=== PATIENT | female | born 1955 | race Two or more races ===

== ENCOUNTER 2022-01-10 11:27 | Emergency (ER) | payer OTHER ==
[~2022-01-10] VITALS: Ht 162.6 cm; Wt 70.3 kg
[2022-01-10] MEDS ORDERED: NALO4SPR BNOSTRILS (12:36)
[2022-01-10 13:13] VITALS: BP 136/88
== END 2022-01-10 13:13 | disposition home or self-care (01) ==
LOC: ER 11:32
DX: T40.2X1A Poisoning by other opioids, accidental (unintentional), initial encounter (principal); F19.229 Other psychoactive substance dependence with intoxication, unspecified; E11.9 Type 2 diabetes mellitus without complications; Z79.891 Long term (current) use of opiate analgesic; Z87.728 Personal history of other specified (corrected) congenital malformations of nervous system and sense organs; Y92.89 Other specified places as the place of occurrence of the external cause

== ENCOUNTER 2022-05-20 17:56 | Emergency (ER) | payer OTHER ==
[~2022-05-20] VITALS: Ht 157.5 cm; Wt 79.4 kg
[~2022-05-20 17:56] MED LIST: NALO4SPR BNOSTRILS
--- NOTE | 2022-05-20 18:00 | NUR ---
BIB[facility] 62 FRM HOME, OVERDOSE, DAUGHTER CALLED AND REPORTED "SMOKED FENTANYL", WAS UNRESPONSIVE, 4MG NASAL NARCAN AND 1MG NARCAN IV GIVEN FLOOR WORKER TRANSFER BAY. BS 137. TO ER BED 3, HOOKED TO CENTRAL STERILIZATION TECHNICIAN, SINUS RHYTHM NOTED. CHANGED TO HOSP GOWN, WARM BLANKET PROVIDED,. PATIENT AAO x2. BREATHING EVEN AND UNLABORED. PATIENT NOTED DROWSY. AWAITING MD VANCE
--- NOTE | 2022-05-20 18:31 | NUR ---
DENNY DEAN [phone] FOR RANGE CONSERVATIONIST ON DISCHARGE
[2022-05-20] MEDS ORDERED: NALO4SPR BNOSTRILS (19:37)
--- NOTE | 2022-05-20 19:56 | NUR ---
DAUGHTER WILL MOTION PICTURE PHOTOGRAPHER IN 20-30 MINS
--- NOTE | 2022-05-20 20:39 | NUR ---
Patient discharged to home in stable condition. Written and verbal after care instructions given. Patient verbalizes understanding of instruction.IV removed. Catheter intact and site benign. Pressure and 4x4 applied to site. No bleeding noted. Assisted via wheelchair and picked up by daughter Melanie.
[2022-05-20 20:40] VITALS: BP 130/80
--- NOTE | 2022-05-20 20:40 | NUR ---
Patient discharged to home in stable condition. Written and verbal after care instructions given. Patient verbalizes understanding of instruction.
== END 2022-05-20 20:41 | disposition home or self-care (01) ==
LOC: ER 18:02
DX: T40.411A Poisoning by fentanyl or fentanyl analogs, accidental (unintentional), initial encounter (principal); Y92.89 Other specified places as the place of occurrence of the external cause

== ENCOUNTER 2022-06-07 17:38 | Emergency (ER) | payer OTHER ==
[~2022-06-07] VITALS: Ht 162.6 cm; Wt 82.6 kg
--- NOTE | 2022-06-07 17:45 | NUR ---
PT MARINO FROM HOME, PER EMS REPORT, PT WAS FOUND BY DAUGHTER IN THE BATHROOM LETHARGIC AND WAS CONCERNED BECAUSE SHE HAS HX OF FENTANYL ABUSE/OVERDOSE. 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 PT STATES SHE DID SMOKE SOMETHING SHE THOUGHT WAS METH. PLACED ON MONITOR. STABLE VITALS. BG 158 CUSTOMER SERVICE OFFICER. AWAITING MD VANCE.
--- NOTE | 2022-06-07 19:25 | NUR ---
DENNY DEAN [phone]
[2022-06-07 21:00] VITALS: BP 128/67
--- NOTE | 2022-06-07 21:00 | NUR ---
Pt ambulatory with a steady gait. VSS. PT CALLED DTR FOR PROTOTYPE SEWER.
[2022-06-07] MEDS ORDERED: NALO4SPR BNOSTRILS (21:13)
--- NOTE | 2022-06-07 21:16 | NUR ---
Patient discharged to home in stable condition. Written and verbal after care instructions given. Patient verbalizes understanding of instruction.
== END 2022-06-07 21:30 | disposition home or self-care (01) ==
LOC: ER 17:40
DX: T40.411A Poisoning by fentanyl or fentanyl analogs, accidental (unintentional), initial encounter (principal); I10 Essential (primary) hypertension; E11.9 Type 2 diabetes mellitus without complications; Z79.899 Other long term (current) drug therapy; Y92.89 Other specified places as the place of occurrence of the external cause

== ENCOUNTER 2022-11-03 10:14 | Inpatient (IN) | payer MEDICARE, OTHER ==
[~2022-11-03] VITALS: Ht 162.6 cm; Wt 81.6 kg
[2022-11-03] MEDS ORDERED: KETOROLAC TROMETHAMINE INJ 60 MG/2 ML VIAL IM ONE ×2 (10:58→11:00)
--- NOTE | 2022-11-03 11:00 | NUR ---
Pt agitated/restless/moaning and groaning secondary to pain- Medicated as ordered
--- NOTE | 2022-11-03 12:00 | NUR ---
Able to be wheeled to BR- voided freely UA sent
[2022-11-03] MEDS ORDERED: ACETAMINOPHEN ES 500 MG TABLET PO ONE (13:00)
--- NOTE | 2022-11-03 13:00 | NUR ---
Updated by MD- Pt for admission. Awaiting Room assignment
[2022-11-03] MEDS ORDERED: ACETAMINOPHEN ES 500 MG TABLET ONE (13:03)
[2022-11-03] MEDS ORDERED: VANCOMYCIN 1 GM in IV D5W 250 ML IV ONE (14:00)
[2022-11-03] MEDS ORDERED: TRAMADOL HCL 50 MG TABLET PO ONE (14:00)
[2022-11-03] MEDS ORDERED: IV NS 0.9% 1,000 ML BAG IV ONE (14:00)
[2022-11-03] MEDS ORDERED: CEFEPIME 1 GM in IV D5W 50 ML IV ONE (14:00)
[2022-11-03] MEDS ORDERED: DICL75TA5 PO (14:19)
[2022-11-03] MEDS ORDERED: FENO200C PO (14:19)
[2022-11-03] MEDS ORDERED: LEVO100T9 PO (14:19)
[2022-11-03] MEDS ORDERED: GABA800T11 PO (14:19)
[2022-11-03] MEDS ORDERED: LORA-259 PO (14:19)
[2022-11-03] MEDS ORDERED: PROP10TA68 PO (14:19)
[2022-11-03 14:26] LABS: BASOPHILS % (AUTO) 0.2 % (0.0-2.0); EOSINOPHILS % (AUTO) 0.2 % (0.0-6.0); HEMATOCRIT 35 % (33-45); LYMPHOCYTES % (AUTO) 10.8 % (20.0-44.0); MEAN CORPUSCULAR HGB CONC 32 g/dl (31.0-36.0); MEAN CORPUSCULAR VOLUME 83 fL (82-100); MONOCYTES # (AUTO) 0.2 K/uL (0.1-1.30); NEUTROPHILS # (AUTO) 7.8 K/uL (1.8-8.9); NEUTROPHILS % (AUTO) 86.8 % (43.0-81.0); PLATELET COUNT (AUTO) 109 K/uL (150-450); RED BLOOD CELL COUNT(AUTO) 4.24 MIL/uL (4.0-5.2)
[2022-11-03] MEDS ORDERED: TRAMADOL HCL 50 MG TABLET ONE (14:35)
[2022-11-03 14:46] LABS: ALANINE AMINOTRANSFERASE 28 U/L (12-78); ALBUMIN 1.9 g/dL (3.4-5.0); ALKALINE PHOSPHATASE 198 U/L (46-116); ASPARTATE AMINOTRANSFERASE 38 U/L (15-37); BILIRUBIN,DIRECT 0.7 mg/dL (0.0-0.2); BILIRUBIN,TOTAL 1.2 mg/dL (0.2-1.0); CALCIUM, SERUM 8.6 mg/dL (8.5-10.1); CARBON DIOXIDE 27 mmol/L (21-32); CHLORIDE 99 mmol/L (98-107); CREATININE 1.2 mg/dL (0.6-1.3); GLUCOSE 316 mg/dL (74-106); POTASSIUM 3.6 mmol/L (3.5-5.1); SODIUM SERUM 134 mmol/L (136-145); TOTAL PROTEIN, SERUM 6.6 g/dL (6.4-8.2); UREA NITROGEN, BLOOD 27 mg/dL (7-18)
--- NOTE | 2022-11-03 14:53 | NUR ---
LACTIC ACID IS 2.9
--- NOTE | 2022-11-03 15:00 | NUR ---
Pt complaining of pain medicated as ordered
[2022-11-03] MEDS ORDERED: MAGNESIUM HYDROXIDE 30 ML UDC PO PRN (15:30)
[2022-11-03] MEDS ORDERED: MAG HYDROX/AL HYDROX/SIMETH 30 ML UDC PO PRN (15:30)
[2022-11-03] MEDS ORDERED: DEXTROSE 50%-WATER 50 ML DISP.SYRIN IV PRN (15:30)
[2022-11-03] MEDS ORDERED: Z GUARD REMEDY 4 OZ OINT TP PRN (15:30)
--- NOTE | 2022-11-03 15:30 | NUR ---
Sleeping soundly- NO obvious distress respirations even and unlabored O2 applied for comfort
[2022-11-03 15:37] LABS: BILIRUBIN,URINE 1+ (NEGATIVE); COLOR,URINE YELLOW (YELLOW); LEUKOCYTE ESTERASE ,URINE TRACE (NEGATIVE); NITRITE, URINE POSITIVE (NEGATIVE); PROTEIN,URINE 2+ mg/dl (NEGATIVE); UGLUCOSE 2+ mg/dL (NEGATIVE)
[2022-11-03] MEDS ORDERED: MORPHINE SULFATE INJ 2 MG/ML DISP.SYRIN IV ONE (16:30)
[2022-11-03] MEDS ORDERED: TEMAZEPAM 15 MG CAPSULE PO PRN (16:30)
[2022-11-03] MEDS ORDERED: ONDANSETRON HCL/PF 4 MG/2 ML VIAL ONE (16:57)
[2022-11-03] MEDS ORDERED: MORPHINE SULFATE INJ 4 MG/ML DISP.SYRIN ONE (16:57)
[2022-11-03] MEDS: ONDANSETRON HCL/PF 4 MG/2 ML VIAL IVP PRN ×2 (17:00→18:32)
[2022-11-03 17:03] LABS: BACTERIA,URINE 4+ /HPF (None Seen); RBC,URINE 81-100 /HPF (0-2); SQUAMOUS EPITHELIAL CELL,UR Few /HPF (None Seen)
[2022-11-03] MEDS: BLOOD SUGAR DIAGNOSTIC 1 EACH STRIP IN SCH ×2 (17:30→23:03)
[2022-11-03] MEDS ORDERED: PROPRANOLOL HCL 10 MG TABLET ONE (17:37)
[2022-11-03] MEDS: PROPRANOLOL HCL 10 MG TABLET PO SCH (17:43)
[2022-11-03] MEDS: DICLOFENAC SODIUM 25 MG TABLET.DR PO SCH (17:44)
[2022-11-03] MEDS ORDERED: INSULIN REGULAR, HUMAN 100 UNIT/ML 10 ML VIAL ONE (18:01)
[2022-11-03] MEDS: INSULIN REGULAR, HUMAN 100 UNIT/ML 3 ML VIAL SQ PRN ×2 (18:11→23:07)
--- NOTE | 2022-11-03 19:21 | NUR ---
lactic acid 2.9 md made aware
--- NOTE | 2022-11-03 20:25 | NUR ---
REPORT GIVEN TO MOOKIE Baird RN FOR CATY
--- NOTE | 2022-11-03 20:26 | NUR ---
PT TRANSFERRING TO 3W 316 VIA ACLS PROTOCOL. VSS. ALL BELONGINGS WITH PT.
[2022-11-03 20:40] VITALS: BP 125/75
--- NOTE | 2022-11-03 20:45 | NUR ---
MS RN ADMITTING NOTE ADDICTED THIS PATIENT FROM ER VIA GURNEY IN D/T OSTEOMYELITIS. PATIENT IS AWAKE, ALERT AND ORIENTED X 2-3. ON O2 INHALATION @ 2 LPM VIA NASAL CANNULA; TOLERATING WELL. BREATHING EVEN AND NONLABORED; AFEBRILE. NOT IN ANY FORM OF RESPIRATORY OR CARDIAC DISTRESS. COMPLAINED OF LOWER BACK PAIN. WITH IV ACCESS ON LEFT HAND 20G; PATENT, INTACT AND SALINE LOCKED. BODY ASSESSMENT DONE; SKIN IS INTACT. ORIENTED TO STAFF, ROOM AND UNIT. SAFETY MEASURES IMPLEMENTED: HEAD OF BED ELEVATED, CALL LIGHT AND TABLE WITHIN REACH, SIDE RAILS UP X 2, BED IN LOWEST LOCKED POSITION. WILL CONTINUE TO MONITOR.
[2022-11-03 21:00] VITALS: BP 125/75
[2022-11-03] MEDS: HYDROCODONE/APAP 5/325MG TABLET PO SCH (21:23)
--- NOTE | 2022-11-03 21:23 | NUR ---
RN NOTE PATIENT C/O LOWER BACK PAIN 8/10 PAIN SCALE. PRN NORCO 5/325 MG 1 TAB GIVEN PO ORDERED; TOLERATED WELL. WILL CONTINUE TO REASSESS AND MONITOR PATIENT.
[2022-11-03] MEDS: IV NS 0.9% 1,000 ML IV PRN (21:29)
[2022-11-03] MEDS: CEFEPIME 2 GM in IV D5W 100 ML IV SCH (22:13)
--- NOTE | 2022-11-03 23:07 | NUR ---
RN NOTE BLOOD SUGAR CHECKED - 167 MG/DL. 3 UNITS OF REGULAR INSULIN GIVEN SQ PER SLIDING SCALE ORDERED. WILL CONTINUE TO MONITOR
[2022-11-04] MEDS ORDERED: KETOROLAC TROMETHAMINE INJ 30 MG/ML VIAL IV PRN (01:00)
[2022-11-04] MEDS: HYDROCODONE/APAP 5/325MG TABLET PO SCH (01:34)
[2022-11-04] MEDS: VANCOMYCIN HCL 0.75 GM in IV D5W 250 ML IV SCH ×2 (04:14→15:49)
[2022-11-04] MEDS: BLOOD SUGAR DIAGNOSTIC 1 EACH STRIP IN SCH ×4 (06:11→22:10)
[2022-11-04] MEDS: INSULIN REGULAR, HUMAN 100 UNIT/ML 3 ML VIAL SQ PRN ×4 (06:12→22:15)
--- NOTE | 2022-11-04 06:12 | NUR ---
RN NOTE BLOOD SUGAR CHECKED - 104 MG/DL. NO INSULIN COVERAGE GIVEN PER SLIDING SCALE. MADE COMFORTABLE IN BED.
[2022-11-04 06:43] LABS: BASOPHILS % (AUTO) 0.2 % (0.0-2.0); EOSINOPHILS % (AUTO) 0.1 % (0.0-6.0); HEMATOCRIT 34 % (33-45); HEMOGLOBIN 10.7 g/dL (11.5-14.8); LYMPHOCYTES # (AUTO) 1.1 K/uL (0.8-4.8); LYMPHOCYTES % (AUTO) 4.5 % (20.0-44.0); MEAN CORPUSCULAR HGB CONC 32 g/dl (31.0-36.0); MEAN CORPUSCULAR VOLUME 83 fL (82-100); MONOCYTES # (AUTO) 1.3 K/uL (0.1-1.30); MONOCYTES % (AUTO) 5.7 % (2.0-12.0); NEUTROPHILS % (AUTO) 89.5 % (43.0-81.0); PLATELET COUNT (AUTO) 67 K/uL (150-450); RED BLOOD CELL COUNT(AUTO) 4.07 MIL/uL (4.0-5.2); WHITE BLOOD COUNT (AUTO) 23.5 K/uL (4.3-11.0)
--- NOTE | 2022-11-04 06:52 | NUR ---
RN NOTE RECEIVED CRITICAL LAB RESULT-PLATELET COUNT - 67. WILL ENDORSED TO INCOMING NURSE.
--- NOTE | 2022-11-04 06:56 | NUR ---
MS RN CLOSING NOTE PATIENT IN BED; AWAKE, A/O X 2-3. STILL ON O2 INHALATION @ 2 LPM VIA NASAL CANNULA; WELL TOLERATED. BREATHING EQUAL AND UNLABORED; AFEBRILE. IN NO ACUTE DISTRESS. WITH IV ACCESS ON LEFT HAND 20G; PATENT AND INTACT INFUSING WITH IVF NS 1L RUNNING @ 100 CC/HR; FLUSHES WELL. SAFETY MEASURES MAINTAINED: HEAD OF BED ELEVATED, CALL LIGHT AND TABLE WITHIN REACH, SIDE RAILS UP X 2, BED IN LOWEST LOCKED POSITION. ENDORSED TO MORNING SHIFT FOR CATY.
[2022-11-04 07:00] VITALS: BP 133/74
--- NOTE | 2022-11-04 07:00 | NUR ---
MS RN OPENING NOTE PATIENT LAYING IN BED, A/O X 3, ABLE TO MAKE NEEDS KNOWN, TOLERATING WELL ON 2 LPM O2 VIA NASAL CANNULA. NO PAIN OR DISCOMFORT AT THIS TIME. L HAND # 20 SL INTACT BUT WITH LEFT ARM EDEMA NOTED, IV FLUIDS HALTED. SAFETY MEASURES IN PLACE: BED IN LOWEST LOCKED POSITION, SIDE RAILS UP X 2, CALL LIGHT WITHIN REACH. WILL CONTINUE TO MONITOR.
--- NOTE | 2022-11-04 07:30 | NUR ---
MS ESCAMILLA NOTES PATIENT IV INFILTRATED AND PATIENT REFUSING IV START AT THIS TIME, AWARE Addendum: 11/04/22 at 1224 by MADI PASCUAL RN PATIENT STILL REFUSING IV START WELL ANY IV OR PO MEDICATIONS, RISKS OF REFUSING MEDICATIONS EXPLAINED X 3, PATIENT STILL REFUSED IV START AND MEDICATIONS. PATIENT STATED HER DAUGHTER IS EN ROUTE TO HOSPITAL TO BRING HER HOME AGAINST MEDICAL ADVICE.
[2022-11-04 07:31] LABS: CALCIUM, SERUM 8.8 mg/dL (8.5-10.1); CREATININE 0.9 mg/dL (0.6-1.3); MAGNESIUM 1.7 mg/dL (1.8-2.4); PHOSPHORUS 2.7 mg/dL (2.5-4.9); POTASSIUM 3.4 mmol/L (3.5-5.1)
[2022-11-04] MEDS ORDERED: POTASSIUM CHLORIDE 20 MEQ TAB.PRT.SR PO ONE ×2 (08:00→10:00)
[2022-11-04] MEDS ORDERED: Magnesium 1GM/D5W 100ML PREMIX PIGGYBACK IV ONE (08:00)
[2022-11-04] MEDS: FENOFIBRATE NANOCRYS (145 MG) 145 MG TABLET PO SCH (08:30)
[2022-11-04] MEDS: LEVOTHYROXINE SODIUM 100 MCG TABLET PO SCH (08:31)
[2022-11-04] MEDS: GABAPENTIN 400 MG CAPSULE PO SCH (08:31)
[2022-11-04] MEDS: PROPRANOLOL HCL 10 MG TABLET PO SCH ×2 (08:31→16:56)
[2022-11-04] MEDS: CEFEPIME 2 GM in IV D5W 100 ML IV SCH ×2 (10:00→21:27)
[2022-11-04] MEDS: Magnesium 1GM/D5W 100ML PREMIX 100 ML IV SCH ×2 (11:00→12:00)
[2022-11-04] MEDS: DICLOFENAC SODIUM 25 MG TABLET.DR PO SCH ×2 (11:15→16:55)
[2022-11-04] MEDS ORDERED: FENTANYL PF 250MCG/5ML AMPUL IV PRN (12:00)
[2022-11-04] MEDS ORDERED: NALOXONE PREFILLED SYRINGE 2 MG/2 ML SYRINGE IV PRN (12:00)
[2022-11-04] MEDS ORDERED: MIDAZOLAM HCL 2 MG/2ML VIAL IV PRN (12:00)
[2022-11-04] MEDS ORDERED: FLUMAZENIL 0.5 MG VIAL IV PRN (12:00)
--- NOTE | 2022-11-04 12:55 | NUR ---
MS RN NOTES PATIENT TRANSPORTED OFF OF FLOOR FOR PROCEDURE. CONSENT FORMS SIGNED.
--- NOTE | 2022-11-04 13:37 | NUR ---
pt unable to hold still, Radiologist will to to ordering Md regarding possible anesthesia consult.
[2022-11-04 16:00] VITALS: BP 127/64
--- NOTE | 2022-11-04 16:23 | NUR ---
MS ESCAMILLA NOTES PATIENT SIGNED CONSENT FOR PICC LINE INSERTION. PERIPHERAL IV LINE REMOVED DUE TO INFILTRATION, PATIENT REFUSING PERIPHERAL IV START. NO IV ACCESS AT THIS TIME. AWARE. Addendum: 11/04/22 at 1624 by MADI PASCUAL RN NURSING GLAZE WIPER AND CHARGE NURSE MADE AWARE OF REQUEST FOR PICC LINE INSERTION
--- NOTE | 2022-11-04 17:00 | NUR ---
MS RN NOTE PATIENT REFUSED ABSCESS DRAINAGE PROCEDURE TODAY. AWARE.
[2022-11-04] MEDS ORDERED: Magnesium 1GM/D5W 100ML PREMIX 100 ML IV SCH (19:00)
--- NOTE | 2022-11-04 19:00 | NUR ---
MS RN CLOSING NOTE PATIENT LAYING IN BED, A/O X 3, ABLE TO MAKE NEEDS KNOWN, TOLERATING WELL ON ROOM AIR WITH NO S/S RESPIRATORY DISTRESS. NO COMPLAINTS OF PAIN OR DISCOMFORT AT THIS TIME. R AC PICC LINE IN PLACE WITH IV NS INFUSING @ 100 ML/HR. SAFETY MEASURES IN PLACE: BED IN LOWEST LOCKED POSITION, SIDE RAILS UP X 2, CALL LIGHT WITHIN REACH. ALL NEEDS MET. WILL ENDORSE TO BANQUET COOK FOR CATY.
[2022-11-04 19:29] LABS: BAND % (MANUAL) 16 % (0.0-5.0); EOSINOPHILS % (MANUAL) 1 % (0-4); LYMPHOCYTES % (MANUAL) 3 % (16-48); MONOCYTES % (MANUAL) 4 % (0-11.0); NEUTROPHILS % (MANUAL) 76 (42-76)
[2022-11-04] MEDS ORDERED: LORAZEPAM ORAL SOLN 2 MG/ML ORAL.CONC PO PRN (19:30)
--- NOTE | 2022-11-04 19:30 | NUR ---
MS RN OPENING NOTE RECEIVED PATIENT IN BED; AWAKE, ALERT AND ORIENTED X 3. ON O2 INHALATION @ 2 LPM VIA NASAL CANNULA; TOLERATING WELL. BREATHING EVEN AND NONLABORED; AFEBRILE. NOT IN ANY FORM OR RESPIRATORY OR CARDIAC DISTRESS NOTED. WITH PICC LINE ON RIGHT UPPER ARM 18G; PATENT AND INTACT INFUSING WITH IVF NS 1L RUNNING @ 100 CC/HR; FLUSHES WELL. ABLE TO MAKE NEEDS KNOWN. SAFETY MEASURES IMPLEMENTED: HEAD OF BED ELEVATED, CALL LIGHT AND TABLE WITHIN REACH, SIDE RAILS UP X 2, BED IN LOWEST LOCKED POSITION. WILL CONTINUE TO MONITOR.
[2022-11-04 20:00] VITALS: BP 110/54
[2022-11-05] MEDS ORDERED: Magnesium 1GM/D5W 100ML PREMIX 100 ML IV SCH
[2022-11-05] MEDS: VANCOMYCIN 1.25 GM in IV D5W 250 ML IV SCH (03:56)
[2022-11-05] MEDS: BLOOD SUGAR DIAGNOSTIC 1 EACH STRIP IN SCH ×4 (05:52→21:39)
[2022-11-05] MEDS: INSULIN REGULAR, HUMAN 100 UNIT/ML 3 ML VIAL SQ PRN ×4 (06:04→21:43)
[2022-11-05] MEDS: HYDROCODONE/APAP 5/325MG TABLET PO SCH ×3 (06:38→21:56)
--- NOTE | 2022-11-05 06:40 | NUR ---
MS RN CLOSING NOTE PATIENT IN BED; AWAKE, A/O X 3. STILL ON O2 INHALATION @ 2 LPM VIA NASAL CANNULA; WELL TOLERATED. BREATHING EQUAL AND UNLABORED; AFEBRILE. IN NO ACUTE DISTRESS NOTED. WITH PICC LINE ON RIGHT UPPER ARM 18G; PATENT AND INTACT INFUSING WITH IVF NS 1L RUNNING @ 100 CC/HR; FLUSHING WELL. SAFETY MEASURES MAINTAINED: HEAD OF BED ELEVATED, CALL LIGHT AND TABLE WITHIN REACH, SIDE RAILS UP X 2, BED IN LOWEST LOCKED POSITION. ENDORSED TO MORNING SHIFT FOR CATY.
--- NOTE | 2022-11-05 07:00 | NUR ---
MS RN OPENING NOTE PATIENT LAYING IN BED, A/O X 3, ABLE TO MAKE NEEDS KNOWN, TOLERATING WELL ON 2 LPM O2 VIA CANNULA WITH ON PAIN OR DISCOMFORT AT THIS TIME. ALETHA PICC LINE CLEAN, INTACT, AND INFUSING NS @ 100 ML/HR. SAFETY MEASURES IN PLACE: BED IN LOWEST LOCKED POSITION, SIDE RAILS UP X 2, CALL LIGHT WITHIN REACH. WILL CONTINUE TO MONITOR.
[2022-11-05] MEDS: LEVOTHYROXINE SODIUM 100 MCG TABLET PO SCH (08:38)
[2022-11-05] MEDS: GABAPENTIN 400 MG CAPSULE PO SCH (08:38)
[2022-11-05] MEDS: PROPRANOLOL HCL 10 MG TABLET PO SCH ×2 (08:38→16:55)
[2022-11-05] MEDS: DICLOFENAC SODIUM 25 MG TABLET.DR PO SCH ×2 (08:39→16:55)
[2022-11-05] MEDS: FENOFIBRATE NANOCRYS (145 MG) 145 MG TABLET PO SCH (08:39)
[2022-11-05 08:44] LABS: BASOPHILS % (AUTO) 0.2 % (0.0-2.0); EOSINOPHILS % (AUTO) 0.5 % (0.0-6.0); HEMATOCRIT 31 % (33-45); HEMOGLOBIN 9.9 g/dL (11.5-14.8); LYMPHOCYTES % (AUTO) 11.8 % (20.0-44.0); MEAN CORPUSCULAR HGB CONC 32 g/dl (31.0-36.0); MEAN CORPUSCULAR VOLUME 82 fL (82-100); MONOCYTES # (AUTO) 0.9 K/uL (0.1-1.30); MONOCYTES % (AUTO) 5.5 % (2.0-12.0); NEUTROPHILS # (AUTO) 13.9 K/uL (1.8-8.9); PLATELET COUNT (AUTO) 90 K/uL (150-450); RED BLOOD CELL COUNT(AUTO) 3.79 MIL/uL (4.0-5.2); WHITE BLOOD COUNT (AUTO) 16.9 K/uL (4.3-11.0)
[2022-11-05] MEDS: CEFEPIME 2 GM in IV D5W 100 ML IV SCH ×2 (09:07→21:07)
[2022-11-05 09:39] LABS: CALCIUM, SERUM 7.9 mg/dL (8.5-10.1); CREATININE 0.9 mg/dL (0.6-1.3); MAGNESIUM 2.1 mg/dL (1.8-2.4); POTASSIUM 4.2 mmol/L (3.5-5.1)
[2022-11-05] MEDS: ACETAMINOPHEN 325 MG TABLET PO PRN (14:32)
[2022-11-05 18:09] LABS: BAND % (MANUAL) 7 % (0.0-5.0); LYMPHOCYTES % (MANUAL) 10 % (16-48); MONOCYTES % (MANUAL) 6 % (0-11.0); NEUTROPHILS % (MANUAL) 77 (42-76)
--- NOTE | 2022-11-05 18:16 | NUR ---
MS RN CLOSING NOTE PATIENT LAYING IN BED, A/O X 3, ABLE TO MAKE NEEDS KNOWN, TOLERATING WELL ON 2 LPM O2 VIA CANNULA WITH ON PAIN OR DISCOMFORT AT THIS TIME. ALETHA PICC LINE CLEAN, INTACT, AND INFUSING NS @ 100 ML/HR. SAFETY MEASURES IN PLACE: BED IN LOWEST LOCKED POSITION, SIDE RAILS UP X 2, CALL LIGHT WITHIN REACH. ALL NEEDS MET. WILL ENDORSE TO MERCHANDISER FOR CATY.
--- NOTE | 2022-11-05 19:05 | NUR ---
MS RN OPENING NOTE PATIENT IS SITTING IN BED, A/O X 3. SHE IS ON 2 LPM OXYGEN VIA NC, TOLERATED WELL. NO S/S OF SOB OR DISTRESS. IV ACCESS IS AT HER RIGHT UA, PICC, #18G, RUNNING NS @100 ML/HR. IV SITE IS PATENT AND INTACT. PATIENT DENIES OF HAVING PAIN. SAFETY MEASURES IN PLACE: BED IN LOWEST AND LOCKED POSITION; SIDE RAILS UP X 2; CALL LIGHT AND TABLE ARE WITHIN REACH. WILL CONTINUE TO MONITOR THE PATIENT AND PROVIDE THE CARE PATIENT NEEDS. .
[2022-11-05 20:00] VITALS: BP 116/66
[2022-11-06] MEDS: HYDROMORPHONE 1 MG/1 ML DISP.SYRIN IV PRN ×2 (01:44→08:21)
--- NOTE | 2022-11-06 01:45 | NUR ---
MS RN NOTE PRN MEDICATION DILAUDID WAS GIVEN FOR PATIENT'S 10/10 PAIN ON HER BACK PER MD ORDER.
[2022-11-06] MEDS: LORAZEPAM INJ 2 MG/ML VIAL IV PRN ×2 (04:11→21:01)
[2022-11-06] MEDS: VANCOMYCIN 1.25 GM in IV D5W 250 ML IV SCH (04:12)
--- NOTE | 2022-11-06 04:15 | NUR ---
MS RN NOTE PATIENT REQUESTED ATIVAN FOR HER ANXIETY. PRN MEDICATION ATIVAN GIVEN PER MD ORDER.
[2022-11-06] MEDS: IV NS 0.9% 1,000 ML IV PRN (05:11)
[2022-11-06 05:54] LABS: CALCIUM, SERUM 7.7 mg/dL (8.5-10.1); CREATININE 0.8 mg/dL (0.6-1.3); POTASSIUM 3.6 mmol/L (3.5-5.1)
[2022-11-06 06:04] LABS: BASOPHILS % (AUTO) 0.3 % (0.0-2.0); EOSINOPHILS % (AUTO) 0.7 % (0.0-6.0); HEMATOCRIT 36 % (33-45); HEMOGLOBIN 11.3 g/dL (11.5-14.8); LYMPHOCYTES # (AUTO) 2.1 K/uL (0.8-4.8); LYMPHOCYTES % (AUTO) 12.8 % (20.0-44.0); MEAN CORPUSCULAR HGB CONC 31 g/dl (31.0-36.0); MEAN CORPUSCULAR VOLUME 84 fL (82-100); MONOCYTES % (AUTO) 6.1 % (2.0-12.0); NEUTROPHILS # (AUTO) 13.2 K/uL (1.8-8.9); NEUTROPHILS % (AUTO) 80.1 % (43.0-81.0); PLATELET COUNT (AUTO) 121 K/uL (150-450); RED BLOOD CELL COUNT(AUTO) 4.33 MIL/uL (4.0-5.2); WHITE BLOOD COUNT (AUTO) 16.5 K/uL (4.3-11.0)
[2022-11-06] MEDS: INSULIN REGULAR, HUMAN 100 UNIT/ML 3 ML VIAL SQ PRN ×4 (06:44→22:07)
--- NOTE | 2022-11-06 06:57 | NUR ---
MS RN CLOSING NOTE PATIENT IS SITTING IN BED, A/O X 3. SHE IS ON 2 LPM OXYGEN VIA NC, TOLERATED WELL. NO S/S OF SOB OR DISTRESS. IV ACCESS IS AT HER RIGHT UA, PICC, #18G, RUNNING NS @100 ML/HR. IV SITE IS PATENT AND INTACT. THROUGH THE SHIFT, PATIENT'S NEEDS HAVE BEEN MET. SAFETY MEASURES IN PLACE: BED IN LOWEST AND LOCKED POSITION; SIDE RAILS UP X 2; CALL LIGHT AND TABLE ARE WITHIN REACH. WILL ENDORSE NEXT SHIFT NURSE FOR CONTINUING PATIENT CARE.
[2022-11-06] MEDS: BLOOD SUGAR DIAGNOSTIC 1 EACH STRIP IN SCH ×4 (07:12→22:03)
--- NOTE | 2022-11-06 07:30 | NUR ---
RN MS NOTES PT IN BED, AWAKE, ALERT AND ORIENTED, WITH COMPLAINT OF LOWER BACK PAIN, NOT IN DISTRESS, PICC LINE AT RIGHT UPPER ARM INTACT AND PATENT, IV FLUIDS INFUSING WELL, ASSISTED TO BEDSIDE COMMODE, ASSISTED WITH BREAKFAST, NEEDS ATTENDED.
[2022-11-06] MEDS: FENOFIBRATE NANOCRYS (145 MG) 145 MG TABLET PO SCH (08:20)
[2022-11-06] MEDS: PROPRANOLOL HCL 10 MG TABLET PO SCH ×2 (08:20→17:35)
[2022-11-06] MEDS: GABAPENTIN 400 MG CAPSULE PO SCH (08:20)
[2022-11-06] MEDS: LEVOTHYROXINE SODIUM 100 MCG TABLET PO SCH (08:20)
[2022-11-06] MEDS: DICLOFENAC SODIUM 25 MG TABLET.DR PO SCH ×2 (08:22→17:35)
[2022-11-06 08:23] VITALS: BP 141/63
[2022-11-06] MEDS: CEFEPIME 2 GM in IV D5W 100 ML IV SCH (09:56)
--- NOTE | 2022-11-06 11:45 | NUR ---
RN MS NOTES PT IN BED, AWAKE, ALERT AND ORIENTED, NO COMPLAINT AT THIS TIME, BLOOD SUGAR CHECKED, INSULIN GIVEN PER SLIDING SCALE ORDERED, ASSISTED TO BEDSIDE COMMODE NEEDED, NEEDS ATTENDED.
[2022-11-06 15:35] VITALS: BP 140/91
--- NOTE | 2022-11-06 15:35 | NUR ---
DEPUTY FELONY CLERK NOTES CALLED TO PT'S ROOMBY 2 STAFF, NOTED PT HAD AN EPISODE OF UNRESPONSIVENESS, TRIES TO OPEN EYES, DROWSY, FOUND A GREEN VAPE CARTRIDGE AT THE BED, KEPT AT PT'S CHART, EX- AT BEDISDE, VITAL SIGNS WNL, O2 SAT DROPPED TO HIGH 80'S BUT WENT UP TO 98% AFTER O2 ADMINISTRATION, RAPID RESPONSE CALLED, PT ABLE TO SPEAK NOW, SAYS HER NAME, STILL A BIT SLEEPY, EASILY AROUSABLE, DR. OGLESBY INFORMED, ORDERED STAT CT HEAD AND URINE DRUG SCREEN, RAPID RESPONSE CANCELLED PT IS AWAKE NOW, WILL CONTINUE TO MONITOR.
[2022-11-06 16:26] VITALS: BP 109/64
--- NOTE | 2022-11-06 16:43 | NUR ---
DOORKEEPER NOTES PT FULLY AWAKE NOW, STATES THAT SHE DID NOT TAKE ANY MEDICATION, ON SINUS RHYTHM ON THE MONITOR, HR ON THE 90'S, ASSISTED TO BEDSIDE COMMODE, NO CHANGE IN LEVEL OF CONSCIOUSNESS, WILL CONTINUE TO MONITOR.
[2022-11-06 17:35] VITALS: BP 143/71
--- NOTE | 2022-11-06 18:36 | NUR ---
MANAGER MEDIA RELATIONS NOTES PT IN BED, AWAKE, ALERT AND ORIENTED, WATCHING TV, NO COMPLAINT OF PAIN OR ANY DISCOMFORT AT THIS TIME, NO CHANGE IN LOC, RESPIRATIONS NORMAL, ON O2 AT 2LPM VIA N/C, NO SOB, IV FLUIDS INFUSING WELL, ALL NEEDS ATTENDED.
[2022-11-06] MEDS: MEROPENEM 1 G in IV NS 0.9% 100 ML IV SCH (18:53)
--- NOTE | 2022-11-06 19:05 | NUR ---
MS RN OPENING NOTE PATIENT IS SITTING IN BED EATING HER SNACKS. A/O X 3. SHE IS ON 2 LPM OXYGEN VIA NC, TOLERATED WELL. NO S/S OF SOB OR DISTRESS. IV ACCESS IS AT HER RIGHT UA, PICC, #18G, RUNNING NS @100 ML/HR. IV SITE IS PATENT AND INTACT. PATIENT DENIES OF HAVING PAIN AT THIS MOMENT. SAFETY MEASURES ARE IN PLACE: BED IN LOWEST AND LOCKED POSITION; SIDE RAILS UP X 2; CALL LIGHT AND TABLE ARE WITHIN REACH. WILL CONTINUE MONITORING THE PATIENT AND PROVIDE THE CARE PATIENT NEEDS. Addendum: 11/06/22 at 2037 by BALAJI FONSECA RN MEMBER OF THE LEGISLATIVE COUNCIL NOTE PATIENT IS ON EXTERNAL CONTROL OPERATOR FLOW COAT. ON THE TELE MONITOR, PATIENT IS SR with hr at 80s.
[2022-11-06 20:00] VITALS: BP 124/70
--- NOTE | 2022-11-06 21:05 | NUR ---
CARBON BRUSHER ASSEMBLER NOTE PATIENT STATED THAT SHE NEEDED ATIVAN FOR HER ANXIETY. PRN MEDICATION ATIVAN GIVEN VIA IV PER MD ORDER.
[2022-11-07] VITALS: BP 143/76
[2022-11-07] MEDS: HYDROMORPHONE 1 MG/1 ML DISP.SYRIN IV PRN ×2 (01:52→20:39)
[2022-11-07] MEDS: ONDANSETRON HCL/PF 4 MG/2 ML VIAL IVP PRN ×2 (02:03→20:50)
[2022-11-07] MEDS: VANCOMYCIN 1.25 GM in IV D5W 250 ML IV SCH (03:47)
[2022-11-07] MEDS: IV NS 0.9% 1,000 ML IV PRN ×2 (03:58→18:30)
[2022-11-07 04:00] VITALS: BP 133/79
[2022-11-07] MEDS: HYDROCODONE/APAP 5/325MG TABLET PO SCH (05:09)
[2022-11-07] MEDS: INSULIN REGULAR, HUMAN 100 UNIT/ML 3 ML VIAL SQ PRN ×4 (06:05→21:15)
[2022-11-07 06:28] LABS: BASOPHILS % (AUTO) 0.2 % (0.0-2.0); HEMATOCRIT 31 % (33-45); HEMOGLOBIN 9.8 g/dL (11.5-14.8); LYMPHOCYTES # (AUTO) 2.5 K/uL (0.8-4.8); LYMPHOCYTES % (AUTO) 15.5 % (20.0-44.0); MEAN CORPUSCULAR HGB CONC 32 g/dl (31.0-36.0); MEAN CORPUSCULAR VOLUME 82 fL (82-100); MONOCYTES # (AUTO) 1.5 K/uL (0.1-1.30); MONOCYTES % (AUTO) 9.1 % (2.0-12.0); NEUTROPHILS # (AUTO) 12.1 K/uL (1.8-8.9); NEUTROPHILS % (AUTO) 74.2 % (43.0-81.0); PLATELET COUNT (AUTO) 147 K/uL (150-450); RED BLOOD CELL COUNT(AUTO) 3.76 MIL/uL (4.0-5.2); WHITE BLOOD COUNT (AUTO) 16.2 K/uL (4.3-11.0)
[2022-11-07 06:35] LABS: CALCIUM, SERUM 7.8 mg/dL (8.5-10.1); CREATININE 0.7 mg/dL (0.6-1.3); POTASSIUM 3.6 mmol/L (3.5-5.1)
[2022-11-07] MEDS: BLOOD SUGAR DIAGNOSTIC 1 EACH STRIP IN SCH ×4 (06:37→21:13)
--- NOTE | 2022-11-07 06:44 | NUR ---
STATION CASHIER CLOSING NOTE PATIENT IS SLEEPING IN BED, EASILY BEING AROUSED. SHE IS ON 2 LPM OXYGEN VIA NC, TOLERATED WELL. NO S/S OF SOB OR DISTRESS. IV ACCESS IS AT HER RIGHT UA, PICC, #18G, RUNNING NS @100 ML/HR. IV SITE IS PATENT AND INTACT. PATIENT DENIES OF HAVING PAIN AT THIS MOMENT. SAFETY MEASURES ARE IN PLACE: BED IN LOWEST AND LOCKED POSITION; SIDE RAILS UP X 2; CALL LIGHT AND TABLE ARE WITHIN REACH. WILL ENDORSE NEXT SHIFT FOR CONTINUE PATIENT CARE.
--- NOTE | 2022-11-07 07:40 | NUR ---
RN OPENING NOTE PATIENT IS AWAKE IN BED. A/O X 3. SHE IS ON 2 LPM OXYGEN VIA NC, TOLERATED WELL. NO S/S OF SOB OR DISTRESS NOTED AT THIS TIME. PATIENT IS ON EXTERNAL WOOD TILE INSTALLATION HELPER READING SR. IV ACCESS IS AT HER RIGHT UA, PICC, #18G, RUNNING NS @100 ML/HR. IV SITE IS PATENT AND INTACT. SAFETY MEASURES IN PLACE: BED IN LOWEST AND LOCKED POSITION; SIDE RAILS UP X 2, CALL LIGHT AND TABLE ARE WITHIN REACH. WILL CONTINUE MONITORING THE PATIENT AND PROVIDE THE CARE PATIENT NEEDS.
[2022-11-07 08:00] VITALS: BP 139/76
[2022-11-07] MEDS: LORAZEPAM INJ 2 MG/ML VIAL IV PRN (08:58)
[2022-11-07] MEDS: FENOFIBRATE NANOCRYS (145 MG) 145 MG TABLET PO SCH (08:59)
[2022-11-07] MEDS: GABAPENTIN 400 MG CAPSULE PO SCH (08:59)
[2022-11-07] MEDS: PROPRANOLOL HCL 10 MG TABLET PO SCH ×2 (08:59→17:38)
[2022-11-07] MEDS: LEVOTHYROXINE SODIUM 100 MCG TABLET PO SCH (08:59)
[2022-11-07] MEDS: DICLOFENAC SODIUM 25 MG TABLET.DR PO SCH ×2 (09:01→17:38)
[2022-11-07] MEDS: MEROPENEM 1 G in IV NS 0.9% 100 ML IV SCH ×2 (09:17→17:37)
[2022-11-07 12:00] VITALS: BP 140/80
[2022-11-07] MEDS: VANCOMYCIN 1 GM in IV D5W 250ml IV SCH (15:57)
[2022-11-07 16:00] VITALS: BP 134/79
--- NOTE | 2022-11-07 18:51 | NUR ---
RETAIL COVERAGE MERCHANDISER CLOSING NOTE PATIENT IS SLEEPING IN BED, EASILY BEING AROUSED. PATIENT IS ON 2 LPM OXYGEN VIA NC, TOLERATED WELL. NO S/S OF SOB OR DISTRESS NOTED AT THIS TIME. IV ACCESS IS AT HER RIGHT UA, PICC, #18G, RUNNING NS @100 ML/HR. IV SITE IS PATENT AND INTACT. PATIENT DENIES OF HAVING PAIN AT THIS MOMENT. PATIENT REFUSED BLOOD DRAW FOR BLOOD CULTURE. SAFETY MEASURES ARE IN PLACE: BED IN LOWEST AND LOCKED POSITION; SIDE RAILS UP X 2, CALL LIGHT AND TABLE ARE WITHIN REACH. WILL ENDORSE NEXT SHIFT FOR CONTINUE PATIENT CARE.
[2022-11-07 20:00] VITALS: BP 124/61
--- NOTE | 2022-11-07 20:24 | NUR ---
RN OPENING NOTE PATIENT AWAKE IN BED. A/OX4. NO S/S OF DISTRESS, BREATHING WITHOUT DIFFICULTY ON 2L NC. ALETHA PICC #18 INTACT AND PATENT W/ NS 100ML/HR. TELE READS SR 62. SAFETY MEASURES IN PLACE: BED LOCKED AND AT LOWEST POSITION, RAILS UP X2, CALL SANCHEZ WITHIN REACH. WILL CONTINUE TO MONITOR PATIENT.
[2022-11-08] MEDS: LORAZEPAM INJ 2 MG/ML VIAL IV PRN ×2 (01:28→08:25)
[2022-11-08] MEDS: ACETAMINOPHEN 325 MG TABLET PO PRN (01:28)
[2022-11-08] MEDS: VANCOMYCIN 1 GM in IV D5W 250ml IV SCH ×2 (04:02→15:20)
[2022-11-08] MEDS: HYDROMORPHONE 1 MG/1 ML DISP.SYRIN IV PRN ×3 (04:03→19:45)
[2022-11-08] MEDS: IV NS 0.9% 1,000 ML IV PRN (05:41)
[2022-11-08] MEDS: INSULIN REGULAR, HUMAN 100 UNIT/ML 3 ML VIAL SQ PRN ×4 (06:15→23:17)
[2022-11-08] MEDS: BLOOD SUGAR DIAGNOSTIC 1 EACH STRIP IN SCH ×4 (06:35→23:15)
--- NOTE | 2022-11-08 06:43 | NUR ---
RN CLOSING NOTE PATIENT AWAKE IN BED. A/OX3. NO S/S OF DISTRESS, BREATHING WITHOUT DIFFICULTY ON 2L NC. ALETHA PICC #18 INTACT AND PATENT W/ NS 100ML/HR. TELE READS SR 68. SAFETY MEASURES IN PLACE: BED LOCKED AND AT LOWEST POSITION, RAILS UP X2, CALL SANCHEZ WITHIN REACH. WILL ENDORSE TO NEXT SHIFT FOR CATY.
--- NOTE | 2022-11-08 06:56 | NUR ---
RN NOTE PATIENT HAD REQUESTED ATIVAN DURING THE NIGHT AND WAS HIGHLY AGITATED. THIS RN PULLED THE MEDICATION (ATIVAN 0.5ML (WHICH IS A PARTIAL DOSE)), HAD THE MEDICATION WASTE WITNESSED BY FELLOW RN, JAZZY, IN [facility], AND MEDICATION WAS ADMINISTERED. HOWEVER, IN WANTING TO ENSURE THE AGITATION WAS REDUCED FOR PATIENT, THIS RN SOCIAL SECRETARY DID NOT SCAN MED BUT ENTERED IT THROUGH MANUAL BAR CODE. IMTIAZ FROM PHARMACY NOTIFIED THIS A.M. PER IMTIAZ I AM TO CHART THE OCCURRENCE, WHICH IS WHAT IS BEING DONE NOW.
--- NOTE | 2022-11-08 07:25 | NUR ---
PER DIEM REGISTERED NURSE CLOSING NOTE RECEIVED PATIENT SLEEPING IN BED, AOX4, ABLE TO MAKE NEEDS KNOWN, ON 2 LPM OXYGEN VIA NC TOLERATING AT 100% SPO2. NO S/S OF SOB OR DISTRESS. IV ACCESS ON ALETHA, PICC, G#18, RUNNING NS @100 ML/HR. PATENT, INTACT, FLUSHING WELL. PATIENT REQUESTING FOR DILAUDID BUT INFORMED NOT DUE YET UNTIL 1003. PATIENT ACKNOWLEDGED. SAFETY MEASURES ARE IN PLACE: BED IN LOWEST AND LOCKED POSITION; SIDE RAILS UP X 2; CALL LIGHT AND TABLE ARE WITHIN REACH. WILL CONTINUE TO MONITOR DURING MY SHIFT. Addendum: 11/08/22 at 1430 by LEAH ÁLVAREZ RN PER DIEM REGISTERED NURSE OPENING NOTES
[2022-11-08 08:00] VITALS: BP 130/64
[2022-11-08] MEDS: MEROPENEM 1 G in IV NS 0.9% 100 ML IV SCH ×2 (08:19→17:27)
[2022-11-08] MEDS: DICLOFENAC SODIUM 25 MG TABLET.DR PO SCH ×2 (08:22→16:53)
[2022-11-08] MEDS: LEVOTHYROXINE SODIUM 100 MCG TABLET PO SCH (08:23)
[2022-11-08] MEDS: GABAPENTIN 400 MG CAPSULE PO SCH (08:23)
[2022-11-08] MEDS: FENOFIBRATE NANOCRYS (145 MG) 145 MG TABLET PO SCH (08:23)
[2022-11-08] MEDS: PROPRANOLOL HCL 10 MG TABLET PO SCH ×2 (08:24→16:52)
[2022-11-08 09:56] LABS: BASOPHILS % (AUTO) 0.1 % (0.0-2.0); EOSINOPHILS % (AUTO) 0.7 % (0.0-6.0); HEMATOCRIT 34 % (33-45); HEMOGLOBIN 10.4 g/dL (11.5-14.8); LYMPHOCYTES % (AUTO) 12.7 % (20.0-44.0); MEAN CORPUSCULAR HGB CONC 30 g/dl (31.0-36.0); MEAN CORPUSCULAR VOLUME 87 fL (82-100); MONOCYTES # (AUTO) 1.3 K/uL (0.1-1.30); MONOCYTES % (AUTO) 8.2 % (2.0-12.0); NEUTROPHILS # (AUTO) 12.6 K/uL (1.8-8.9); NEUTROPHILS % (AUTO) 78.3 % (43.0-81.0); PLATELET COUNT (AUTO) 205 K/uL (150-450); RED BLOOD CELL COUNT(AUTO) 3.96 MIL/uL (4.0-5.2)
--- NOTE | 2022-11-08 10:30 | NUR ---
RN NOTES - PAIN MANAGEMENT PATIENT COMPLAINING OF 10/10 PAIN, GIVEN DILAUDID 1MG IV ORDERED, WILL CONTINUE TO MONITOR
[2022-11-08 11:59] LABS: CALCIUM, SERUM 7.8 mg/dL (8.5-10.1); CREATININE 0.7 mg/dL (0.6-1.3); MAGNESIUM 2.2 mg/dL (1.8-2.4); PHOSPHORUS 2.2 mg/dL (2.5-4.9); POTASSIUM 3.6 mmol/L (3.5-5.1)
[2022-11-08] MEDS: KETOROLAC TROMETHAMINE INJ 30 MG/ML VIAL IM PRN (15:20)
--- NOTE | 2022-11-08 15:20 | NUR ---
RN NOTES - PAIN MANAGEMENT PATIENT COMPLAINING OF 10/10 PAIN, GIVEN KETOROLACE 30 MG IM ORDERED, WILL CONTINUE TO MONITOR
--- NOTE | 2022-11-08 15:48 | NUR ---
RN NOTES - RECEIVED A CALL FROM A SHIRLEY TO INFORM THAT THE PATIENT'S DAUGHTER WAS ARRESTED AND IN THE PROCESS OF BEING BAILED BY HER BF. INFORMED THE PATIENT THE SAME.
[2022-11-08 16:00] VITALS: BP 149/78
[2022-11-08] MEDS ORDERED: K PHOS NEUTRAL 250 MG TABLET PO ONE (16:00)
--- NOTE | 2022-11-08 19:25 | NUR ---
BIOASSAYIST CLOSING NOTE PATIENT SLEEPING IN BED, AOX4, ABLE TO MAKE NEEDS KNOWN, STILL ON 2 LPM OXYGEN VIA NC TOLERATING AT 100% SPO2. NO S/S OF SOB OR DISTRESS. IV ACCESS ON ALETHA PICC LINE G#18, RUNNING NS @100 ML/HR. PATENT, INTACT, FLUSHING WELL. ALL NEEDS MET. ALL DUE MEDS GIVEN SAFETY MEASURES MAINTAINED: BED IN LOWEST AND LOCKED POSITION; SIDE RAILS UP X 2; CALL LIGHT AND TABLE ARE WITHIN REACH. WILL ENDORSE TO PLANT PULLER NURSE.
--- NOTE | 2022-11-08 19:30 | NUR ---
MATERIALS INTERN OPENING NOTE RECEIVED PT AWAKE IN BED AT THIS TIME, AOX4, ABLE TO MAKE NEEDS KNOWN. ON 2 LPM OXYGEN VIA NC TOLERATING AT 100% SPO2. NO S/S OF SOB OR DISTRESS. ASKING FOR PAIN MEDS AT THIS TIME. ON TELE MONITOR READING SR 68. IV ACCESS ON ALETHA PICC LINE G#18, RUNNING NS @100 ML/HR. PATENT, INTACT, FLUSHING WELL. SAFETY MEASURES IN PLACE: BED IN LOWEST AND LOCKED POSITION; SIDE RAILS UP X3; CALL LIGHT AND TABLE ARE WITHIN REACH. WILL CONTINUE TO MONITOR AND ASSIST.
[2022-11-08 20:00] VITALS: BP 129/62
[2022-11-09] VITALS: BP 130/77
[2022-11-09] MEDS: KETOROLAC TROMETHAMINE INJ 30 MG/ML VIAL IM PRN ×2 (00:05→06:58)
[2022-11-09] MEDS: HYDROMORPHONE 1 MG/1 ML DISP.SYRIN IV PRN ×5 (01:57→22:25)
[2022-11-09] MEDS: VANCOMYCIN 1 GM in IV D5W 250ml IV SCH (03:34)
[2022-11-09] MEDS: BLOOD SUGAR DIAGNOSTIC 1 EACH STRIP IN SCH ×4 (06:55→22:24)
[2022-11-09] MEDS: INSULIN REGULAR, HUMAN 100 UNIT/ML 3 ML VIAL SQ PRN ×3 (06:57→17:08)
--- NOTE | 2022-11-09 07:00 | NUR ---
DIRECTOR RISK CLOSING NOTES PT AWAKE IN BED AT THIS TIME, AOX4, ABLE TO MAKE NEEDS KNOWN. STABLE ON 2 LPM OXYGEN VIA NC. NO S/S OF SOB OR DISTRESS. ASKING FOR PAIN MEDS AT THIS TIME. ON TELE MONITOR READING SR 72. IV ACCESS ON ALETHA PICC LINE G#18, RUNNING NS @100 ML/HR. PATENT, INTACT, FLUSHING WELL. ALL CARE PROVIDED AND MEDICATIONS TOLERATED WELL. SAFETY MEASURES MAINTAINED: BED IN LOWEST AND LOCKED POSITION; SIDE RAILS UP X3; CALL LIGHT AND TABLE ARE WITHIN REACH. WILL ENDORSE CATY TO DAY SHIFT NURSE.
[2022-11-09 07:19] LABS: CALCIUM, SERUM 7.2 mg/dL (8.5-10.1); CREATININE 0.7 mg/dL (0.6-1.3); MAGNESIUM 1.9 mg/dL (1.8-2.4); PHOSPHORUS 2.7 mg/dL (2.5-4.9); POTASSIUM 3.2 mmol/L (3.5-5.1)
[2022-11-09 07:32] LABS: BASOPHILS % (AUTO) 0.3 % (0.0-2.0); EOSINOPHILS % (AUTO) 1.1 % (0.0-6.0); HEMATOCRIT 31 % (33-45); HEMOGLOBIN 9.9 g/dL (11.5-14.8); LYMPHOCYTES # (AUTO) 2.3 K/uL (0.8-4.8); LYMPHOCYTES % (AUTO) 19.8 % (20.0-44.0); MEAN CORPUSCULAR HGB CONC 32 g/dl (31.0-36.0); MEAN CORPUSCULAR VOLUME 83 fL (82-100); MONOCYTES # (AUTO) 1.3 K/uL (0.1-1.30); MONOCYTES % (AUTO) 10.5 % (2.0-12.0); NEUTROPHILS # (AUTO) 8.1 K/uL (1.8-8.9); NEUTROPHILS % (AUTO) 68.3 % (43.0-81.0); PLATELET COUNT (AUTO) 280 K/uL (150-450); RED BLOOD CELL COUNT(AUTO) 3.73 MIL/uL (4.0-5.2); WHITE BLOOD COUNT (AUTO) 11.9 K/uL (4.3-11.0)
[2022-11-09 08:00] VITALS: BP 140/74
--- NOTE | 2022-11-09 08:01 | NUR ---
RN OPENING NOTE- PT ANXIOUS, STATES "I'M IN [place]".,TORADOL JUST ADMINISTERED BY NOC RN, AOX4, ABLE TO MAKE NEEDS KNOWN. STABLE ON 2 LPM OXYGEN VIA NC. NO S/S OF SOB OR DISTRESS. ASKING FOR PAIN MEDS AT THIS TIME. ON TELE MONITOR READING SR 80. IV ACCESS ON ALETHA PICC LINE G#18, RUNNING NS @100 ML/HR. PATENT, INTACT, FLUSHING WELL. ALL CARE PROVIDED AND MEDICATIONS TOLERATED WELL. SAFETY MEASURES MAINTAINED: BED IN LOWEST AND LOCKED POSITION; SIDE RAILS UP X3; CALL LIGHT IN REACH. MONITOR / ASSIST
[2022-11-09] MEDS: LORAZEPAM INJ 2 MG/ML VIAL IV PRN ×2 (08:02→14:54)
[2022-11-09] MEDS: IV NS 0.9% 1,000 ML IV PRN ×2 (08:05→23:58)
[2022-11-09] MEDS: FENOFIBRATE NANOCRYS (145 MG) 145 MG TABLET PO SCH (09:53)
[2022-11-09] MEDS: LEVOTHYROXINE SODIUM 100 MCG TABLET PO SCH (09:53)
[2022-11-09] MEDS: PROPRANOLOL HCL 10 MG TABLET PO SCH ×2 (09:54→17:11)
[2022-11-09] MEDS: GABAPENTIN 400 MG CAPSULE PO SCH (09:54)
[2022-11-09] MEDS ORDERED: POTASSIUM CHLORIDE 20 MEQ TAB.PRT.SR PO ONE (10:00)
[2022-11-09] MEDS: MEROPENEM 1 G in IV NS 0.9% 100 ML IV SCH ×2 (10:02→17:46)
[2022-11-09] MEDS: DICLOFENAC SODIUM 25 MG TABLET.DR PO SCH ×2 (10:13→16:27)
[2022-11-09 12:00] VITALS: BP 131/66
[2022-11-09] MEDS: HYDROCODONE/APAP 5/325MG TABLET PO SCH ×2 (13:00→20:18)
[2022-11-09] MEDS: VANCOMYCIN 1.25 GM in IV D5W 250 ML IV SCH (15:21)
[2022-11-09 16:00] VITALS: BP 148/75
--- NOTE | 2022-11-09 18:29 | NUR ---
TOOLROOM HELPER CLOSING NOTE PATIENT AWAKE IN BED, AOX3 WITH EPISODES OF CONFUSION AND AGITATION, ABLE TO MAKE NEEDS KNOWN. ON TELE MONITOR RUNNING SINUS RHYTHM AT 80BPM. ON 2L O2 NC WITH NO S/S OF SOB OR RESPIRATORY DISTRESS. IV ACCESS ON ALETHA PICC LINE G#18, RUNNING NS @100 ML/HR. PATENT, INTACT, FLUSHING WELL WITH NO SIGNS OF INFILTRATION. ALL NEEDS MET. ALL DUE MEDS GIVEN. PAIN MANAGEMENT CONSULT TOMORROW. SAFETY MEASURES MAINTAINED INCLUDING BED IN LOWEST AND LOCKED POSITION; SIDE RAILS UP X 2; CALL LIGHT AND TABLE WITHIN REACH. WILL ENDORSE TO ARCHITECTURAL DRAFTING INSTRUCTOR NURSE.
--- NOTE | 2022-11-09 19:59 | NUR ---
RECEIVED IN BED ASLEEP hob ELEVATED 40 DEGRESS RESP EVEN AND UNLABORED 20/MIN ON TELE SR NOTED BED ALARM IS SANITATION TRUCK CLEANER LIGHT WITHIN HER REACH
[2022-11-09 20:00] VITALS: BP 147/72
[2022-11-10] MEDS: VANCOMYCIN 1.25 GM in IV D5W 250 ML IV SCH (03:51)
[2022-11-10 04:00] VITALS: BP 136/68
[2022-11-10] MEDS: HYDROMORPHONE 1 MG/1 ML DISP.SYRIN IV PRN (05:00)
--- NOTE | 2022-11-10 05:11 | NUR ---
CLOSING NOTES: ALERT AND ORIENTATED X4 FREQUENTLY ASKING FOR PAIN MEDICATION, NOT REMEMBERING WHEN SHE LAST HAD A DOSE. SHE IS PLEASANT AND COOPERATIVE RESTORIL GIVEN UPON HER REQUEST ..NOT EFFECTIVE NOT ABLE TO SLEEP DILAUDID 1 MG GIVEN TIMES 2 THIS 12 HOURS LAST DOSE BEING 0500 THIS AM SHE WILL WATCH THE NURSE GIVE THE IV MEDICATION THE WHOLE TIME OF ADMINISTRATION IV NORCO GIVEN X1 @ 2014 NOT EFFECTIVE FOR THE BACK PAIN PENDING IR GUIDED PSOAS MUSCLE ABSCESS DRAINAGE TO BE DONE CONSENT IS IN THE CHART
[2022-11-10] MEDS: BLOOD SUGAR DIAGNOSTIC 1 EACH STRIP IN SCH (06:23)
[2022-11-10] MEDS: INSULIN REGULAR, HUMAN 100 UNIT/ML 3 ML VIAL SQ PRN (06:25)
[2022-11-10 06:42] LABS: BASOPHILS % (AUTO) 0.4 % (0.0-2.0); EOSINOPHILS % (AUTO) 0.6 % (0.0-6.0); HEMATOCRIT 30 % (33-45); HEMOGLOBIN 9.4 g/dL (11.5-14.8); LYMPHOCYTES # (AUTO) 1.9 K/uL (0.8-4.8); LYMPHOCYTES % (AUTO) 16.3 % (20.0-44.0); MEAN CORPUSCULAR HGB CONC 31 g/dl (31.0-36.0); MEAN CORPUSCULAR VOLUME 83 fL (82-100); MONOCYTES # (AUTO) 1.2 K/uL (0.1-1.30); MONOCYTES % (AUTO) 10.7 % (2.0-12.0); NEUTROPHILS # (AUTO) 8.4 K/uL (1.8-8.9); PLATELET COUNT (AUTO) 360 K/uL (150-450); RED BLOOD CELL COUNT(AUTO) 3.59 MIL/uL (4.0-5.2); WHITE BLOOD COUNT (AUTO) 11.7 K/uL (4.3-11.0)
--- NOTE | 2022-11-10 07:00 | NUR ---
TEAM MANAGER OPENING NOTES RECEIVED PT IN BED AWAKE, ALERT AND ORIENTED X 4 AND ABLE TO MAKE NEEDS KNOWN. WITH EPISODES OF CONFUSION AND AGITATION, NEEDS FREQUENT REORIENTATION. NO SOB OR CARDIAC DISTRESS NOTED, ON O2 INHALATION @ 2LPM VIA NC AND TOLERATING WELL. ON AIRPLANE DESIGNER WITH CURRENT READING OF SINUS RHYTHM @80 BPM. WITH IV ACCESS ON RIGHT UPPER ARM PICC LINE GAUGE 18 RUNNING WITH NS @100 ML/ML PATENT AND INTACT. ON PAIN MANAGEMENT ORDERED. SAFETY MEASURES MAINTAINED: BED LOCKED AND IN LOWEST POSITION, SIDE RAILS UP X2. CALL LIGHT IN EASY REACH. WILL MONITOR ACCORDINGLY.
[2022-11-10 07:52] LABS: CALCIUM, SERUM 7.2 mg/dL (8.5-10.1); CREATININE 0.6 mg/dL (0.6-1.3); MAGNESIUM 1.8 mg/dL (1.8-2.4); PHOSPHORUS 1.8 mg/dL (2.5-4.9); POTASSIUM 3.3 mmol/L (3.5-5.1)
[2022-11-10] MEDS: DICLOFENAC SODIUM 25 MG TABLET.DR PO SCH (09:14)
[2022-11-10] MEDS: MEROPENEM 1 G in IV NS 0.9% 100 ML IV SCH (09:14)
[2022-11-10 09:15] VITALS: BP 139/83
[2022-11-10] MEDS: FENOFIBRATE NANOCRYS (145 MG) 145 MG TABLET PO SCH (09:15)
[2022-11-10] MEDS: LEVOTHYROXINE SODIUM 100 MCG TABLET PO SCH (09:15)
[2022-11-10] MEDS: PROPRANOLOL HCL 10 MG TABLET PO SCH (09:15)
[2022-11-10] MEDS: GABAPENTIN 400 MG CAPSULE PO SCH (09:15)
[2022-11-10] MEDS ORDERED: K PHOS NEUTRAL 250 MG TABLET PO ONE (10:00)
[2022-11-10] MEDS ORDERED: POTASSIUM CHLORIDE 20 MEQ TAB.PRT.SR PO SCH (10:00)
--- NOTE | 2022-11-10 11:10 | NUR ---
RN NOTES PATIENT WAS SEEN BY FLAVORING OIL FILTERER AND STATING HER IS WAITING FOR HER DOWNSTAIRS AND PT WANTED TO GO HOME, EXPLAINED THE RISK AND BENEFITS AND PT VERBALIZED UNDERSTANDING. PT ALERT AND ORIENTED X 4 WITH CONFUSION AND NEEDS FREQUENT REORIENTATION AND REDIRECTION. PT INSISTED TO GO HOME AGAINST MEDICAL ADVICE. SHE ATTEMPTED TO REMOVE PICC LINE AND WE TOLD HER ITS DANGEROUS AND WILL CAUSE HER BLEED. PT THEN CALMED DOWN AND STILL DECIDED TO GO HOME. PT SIGNED AMA FORM. DR CASSIDY MADE AWARE.
--- NOTE | 2022-11-10 11:28 | NUR ---
AMA GLOBAL ANALYTICS HEAD NOTES: PATIENT LEFT AMA. PATIENT ALERT AND ORIENTED X4 PT, NO SOB OR CARDIAC DISTRESS. NO COMPLAINED OF PAIN. KEPT SAYING SHE WANTED TO GO HOME AND WILL PICK HIM UP, PT'S IS NOT ALLOWED TO GO UP DUE TO GIVING UNKNOWN VAPE TO PT. EXPLAINED THE RISK AND BENEFITS OF GOING HOME AGAINST MEDICAL ADVICE, PT VERBALIZED UNDERSTANDING. REMOVED PICC LINE ACCESS AND SECURE WITH DRESSING AND TAPE, EQUIPMENT APPLICATION SPECIALIST HANDED TO ALI DIVER TENDER. IDENTIFICATION BAND REMOVED. BELONGINGS SIGNED AND ALL BELONGINGS CARRIED WITH THE PT, HOME MEDS PICKED UP TO PHARMACY AND HANDED TO /PT. INFORMED DR CASSIDY. PT WAS ACCOMPANIED BY RN AND ALMA DAWSON. PT LEFT THE UNIT STABLE.
== END 2022-11-10 11:00 | disposition left against medical advice (07) | DRG 539 ==
LOC: ER 11:06 → TRANSITION 17:32 → MED 20:16 → TELE 11-06 18:24
PROVIDERS: ADMIT Nurse Practitioner Acute Care; ATTEND Student in an Organized Health Care Education/Training Program
PROC: 02HV33Z Insertion of Infusion Device into Superior Vena Cava, Percutaneous Approach (ICD-10-PCS; principal; 2022-11-04)
PROC: B548ZZA Ultrasonography of Superior Vena Cava, Guidance (ICD-10-PCS; 2022-11-04)
DX: M46.26 Osteomyelitis of vertebra, lumbar region (principal); K68.12 Psoas muscle abscess; N39.0 Urinary tract infection, site not specified; R78.81 Bacteremia; E86.0 Dehydration; M46.46 Discitis, unspecified, lumbar region; B96.89 Other specified bacterial agents as the cause of diseases classified elsewhere; I10 Essential (primary) hypertension; R73.03 Prediabetes; E78.5 Hyperlipidemia, unspecified; E03.9 Hypothyroidism, unspecified; E87.6 Hypokalemia; E83.42 Hypomagnesemia; F11.10 Opioid abuse, uncomplicated; M17.0 Bilateral primary osteoarthritis of knee; E66.9 Obesity, unspecified; Z68.30 Body mass index [BMI] 30.0-30.9, adult; Z20.822 Contact with and (suspected) exposure to COVID-19
CPT/HCPCS: 36415; 36569; 70450-TC; 71045-TC; 72131-TC; 80048-TC; 80061-TC; 80076-TC; 80202-TC; 81001; 82962-TC; 83605-TC; 83735-TC; 84100-TC; 85025-TC; 85730-TC; 87040-TC; 87081-TC; 87086-TC; 93307-TC; G0378; J0692; J1170; J1815; J1885; J2060; J2185; J2270; J2405; J3370; J3475; J7030; J7040; J7060

== ENCOUNTER 2025-08-06 13:55 | Emergency (ER) | payer OTHER, BC ==
[~2025-08-06] VITALS: Ht 167.6 cm; Wt 83.5 kg
[~2025-08-06 13:55] MED LIST changes: +DICL75TA5 PO; +FENO200C PO; +GABA800T11 PO; +LEVO100T9 PO; +LORA-259 PO; -NALO4SPR BNOSTRILS; +PROP10TA68 PO
[2025-08-06 14:08] VITALS: TEMP 98.3
[2025-08-06 18:23] VITALS: BP 121/79; O2SAT 99
== END 2025-08-06 18:24 | disposition home or self-care (01) ==
LOC: ER 14:01
DX: T50.7X1A Poisoning by analeptics and opioid receptor antagonists, accidental (unintentional), initial encounter (principal); I10 Essential (primary) hypertension; E11.9 Type 2 diabetes mellitus without complications; Z79.899 Other long term (current) drug therapy; Y92.89 Other specified places as the place of occurrence of the external cause
CPT/HCPCS: 82962-TC

== ENCOUNTER 2025-09-06 15:27 | Emergency (ER) | payer OTHER, BC ==
[~2025-09-06] VITALS: Ht 167.6 cm; Wt 78.9 kg
[2025-09-06 22:49] VITALS: BP 134/79; TEMP 98; O2SAT 98
== END 2025-09-06 22:49 | disposition home or self-care (01) ==
LOC: ER 15:31
DX: T40.411A Poisoning by fentanyl or fentanyl analogs, accidental (unintentional), initial encounter (principal); I10 Essential (primary) hypertension; E11.9 Type 2 diabetes mellitus without complications; Z79.890 Hormone replacement therapy; Z79.899 Other long term (current) drug therapy; Y92.89 Other specified places as the place of occurrence of the external cause
CPT/HCPCS: 82962-TC